=== PATIENT | female | born 1935 | race Caucasian/White ===

== ENCOUNTER 2022-10-09 19:01 | Emergency (ER) | payer OTHER, MEDICARE ==
[~2022-10-09] VITALS: Ht 162.6 cm; Wt 56.7 kg
[~2022-10-09 19:01] MED LIST: ATENOLOL25 MG PO; CENTRUM SILVER1 EACH PO; CITRACAL + D C1 EACH PO; COSAMIN DS TAB1 EACH PO; CRESTOR10 MG PO; IMITREX100 MG PO; NORCO 5-325 TA1 EACH PO; THERA TEARS NU1 EACH PO
[2022-10-09] MEDS ORDERED: ATENOLOL25 MG PO (19:23)
[2022-10-09] MEDS ORDERED: ONDANSETRON ODT4 MG PO (20:45)
== END 2022-10-09 21:16 | disposition home or self-care (01) ==
LOC: ED 19:01
DX: S63.92XA Sprain of unspecified part of left wrist and hand, initial encounter (principal); S00.83XA Contusion of other part of head, initial encounter; E78.5 Hyperlipidemia, unspecified; I10 Essential (primary) hypertension; W00.0XXA Fall on same level due to ice and snow, initial encounter; Z88.5 Allergy status to narcotic agent; Z79.899 Other long term (current) drug therapy
CPT/HCPCS: 70450; 70486; 73130; 99284-25; A9270

== ENCOUNTER 2025-01-20 11:07 | Observation (INO) | payer MEDICARE, OTHER ==
[~2025-01-20] VITALS: Ht 162.6 cm; Wt 57.3 kg
[~2025-01-20 11:07] MED LIST changes: +ONDANSETRON ODT4 MG PO
[2025-01-20] MEDS ORDERED: CODEINE-GUAIFE120 ML PO ×2 (12:34→17:50)
[2025-01-20 13:19] LABS: BASOPHILS 0.5 % (0.1-1.2); EOSINOPHILS 1.3 % (0.7-5.8); HEMATOCRIT 44.2 % (34.1-44.9); LYMPHOCYTES 9.7 % (19.3-51.7); MCH 27.3 PG (25.6-32.2); MCHC 31.7 g/dL (32.2-35.5); MCV 86.2 fL (79.4-94.8); MONOCYTES 10.1 % (4.7-12.5); NEUTROPHILS 78.2 % (34.0-71.1); PLATELET COUNT 249 K/uL (182-369); RBC 5.13 M/uL (3.93-5.22)
[2025-01-20 13:38] LABS: ALBUMIN 3.6 g/dL (3.4-5.0); ALBUMIN/GLOBULIN RATIO 0.95 (1.1-2.4); ANION GAP 10.2 (7-21); BILIRUBIN, TOTAL 0.6 mg/dL (0.2-1.0); BUN/CREATININE RATIO 11.94 (6.0-28.6); CALCIUM 9.4 mg/dL (8.5-10.1); CREATININE, SERUM 0.67 mg/dL (0.55-1.02); POTASSIUM 4.2 mmol/L (3.5-5.1); PROTEIN, TOTAL 7.4 g/dL (6.4-8.2)
[2025-01-20] MEDS ORDERED: ROSUVASTATIN CAL5 MG PO (14:41)
[2025-01-20] MEDS ORDERED: ondansetron HCL 4 MG/2 ML VIAL IV PRN (15:15)
[2025-01-20] MEDS ORDERED: ACETAMINOPHEN 325 MG TAB PO PRN (15:15)
[2025-01-20] MEDS ORDERED: atenoloL 25 MG TAB PO SCH (16:11)
--- NOTE | 2025-01-20 16:28 | NUR ---
PATIENT TO MED SURG.
[2025-01-20 16:37] VITALS: BP 166/95
--- NOTE | 2025-01-20 17:13 | NUR ---
PATIENT ADMITTED TO MED SURG. RIGHT UPPER CHEST TUBE IS SECURED WITH TAPE AND TO WATER SEAL = 20CM OF WALL SUCTION. O2 SATS ARE 96% ON ROOM AIR. LEFT LUNG IS CLEAR, RIGHT LUNG HAS CRACKLES NOTED THROUGHOUT. PATIENT'S DAUGHTER AND FAMILY IN ROOM. PO MEDICATION GIVEN FOR HTN. PATIENT RATES RIGHT SCAPULA PAIN 4/10.
[2025-01-20] MEDS ORDERED: GLUCOSAMINE &1 EACH PO (17:50)
--- NOTE | 2025-01-20 17:51 | NUR ---
MED REC COMPLETE
[2025-01-20 18:17] VITALS: BP 118/96
--- NOTE | 2025-01-20 18:23 | NUR ---
PATIENT SITTING UP IN CHAIR AT THIS TIME. VITALS AND I&O'S DONE AND CHARTED. CALL LIGHT IN REACH. NO FURTHER NEEDS AT THIS TIME. FRESH WATER GIVEN.
--- NOTE | 2025-01-20 18:35 | NUR ---
CALL TO DR. EATON REGARDING PATIENT'S PAIN NEEDS. NEW ORDER TO FOLLOW.
[2025-01-20] MEDS ORDERED: OXYCODONE HCL 5 MG TAB PO PRN ×2 (18:45→20:45)
--- NOTE | 2025-01-20 18:53 | NUR ---
PATIENT IS UP TO CHAIR, DENIES NEEDS. FACE SHEET AND DAUGHTERS PHONE NUMBER ARE PLACED BY DR. CARPIO'S COMPUTER. DAUGHTER IS AN MD AND WOULD LIKE TO BE CONTACTED BY DR. CARPIO TOMORROW.
--- NOTE | 2025-01-20 19:33 | NUR ---
REPORT RECEIVED FROM DAY SHIFT RN. PT SITTING IN RECLINER ALERT AND ORIENTED. FAMILY IN ROOM. PT DENIES NEEDS. WHITE BOARD UPDATED. CALL LIGHT IN REACH.
--- NOTE | 2025-01-20 20:38 | NUR ---
PHONE CALL TO MD, UPDATED pt'S FAMILY REQUESTING LOWER DOSE OF PAIN MEDICATION, SLEEP MEDICATION. MD TO pt ROOM ASSESSING pt, DISCUSSING PLAN OF CARE. MD TO PLACE ORDERS.
[2025-01-20] MEDS ORDERED: TRAMADOL HCL 50 MG TAB PO PRN (20:45)
[2025-01-20] MEDS ORDERED: MELATONIN 3 MG TAB PO PRN ×2 (21:00)
[2025-01-20 21:14] VITALS: BP 140/94
--- NOTE | 2025-01-20 21:25 | NUR ---
CALL LIGHT ANSWERED. VS COMPLETE. YADIEL MILLIGAN ASSISTS WITH ORAL CARE. BLINDS SHUT PER REQUEST. SBA TO BSC FOR VOID, pt REQUESTS PRIVACY. NURSING STAFF OUT OF ROOM. pt USES CALL LIGHT, BUT ALREADY BACK IN BED. CHEST TUBE KNOCKED OVER. SYSTEM INTACT TO SUCTION. pt EDUCATED NOT TO TRANSFER SELF WITHOUT NURSING STAFF ASSIST. VERBALIZES UNDERSTANDING. RESTING IN BED WITH CALL LIGHT AND PERSONAL SUPPLIES WITHIN REACH.
--- NOTE | 2025-01-20 22:10 | NUR ---
EVENING ASSESSMENT COMPLETE. PT REPORTS RIGHT SIDE PAIN 10/21. PRN FOR PAIN ADMIN PER EMAR. PT DENIES SOB. SpO2 MID 90'S ON RA. RIGHT CHEST TUBE IN PLACE WITH SEROUS DRAINAGE. HOB ELEVATED. CPOX IN PLACE. ASSISTED WITH PM CARES. PT DENIES QUESTIONS OR CONCERNS. CALL LIGHT IN REACH. BED ALARM FOR SAFETY.
--- NOTE | 2025-01-20 22:52 | NUR ---
CALL LIGHT ANSWERED. PT UP TO BSC WITH SBA TO VOID. BACK TO BED, MOI WELL. PRN ADMIN FOR SLEEP PER PT REQEUST. NO FURTHER NEEDS. BED ALARM IN PLACE. CALL LIGHT IN REACH.
[2025-01-21] VITALS (7 sets, daily range): BP systolic 116–146; BP diastolic 60–87
--- NOTE | 2025-01-21 00:23 | NUR ---
BED ALARM SOUNDING. PT WITH LEGS OVER THE SIDE OF THE BED. REPORTS BACK PAIN. DENIES PRN FOR PAIN WHEN OFFERED. ASSISTED PT TO REPOSITION TO LEFT SIDE WITH PILLOWS. NO FURTHER NEEDS. CALL LIGHT IN REACH. BED ALARM FOR SAFETY.
--- NOTE | 2025-01-21 02:35 | NUR ---
PT RESTING ON LEFT SIDE WITH EYES CLOSED. AWAKENS EASILY. VS AND I&O OBTAINED, WNL. SpO2 96% ON RA. ASSESSMENT COMPLETE. NO NEEDS AT THIS TIME. CALL LIGHT IN REACH. BED ALARM FOR SAFETY.
--- NOTE | 2025-01-21 04:01 | NUR ---
PT RESTING IN BED WITH EYES CLOSED. RESPIRATIONS EVEN. SpO2 94% ON RA. HR 70'S. BED ALARM IN PLACE. CALL LIGHT IN REACH.
[2025-01-21 05:33] LABS: BASOPHILS 0.3 % (0.1-1.2); EOSINOPHILS 2.8 % (0.7-5.8); HEMATOCRIT 41.1 % (34.1-44.9); HEMOGLOBIN 13.3 g/dL (11.2-15.7); MCH 27.4 PG (25.6-32.2); MCHC 32.4 g/dL (32.2-35.5); MCV 84.7 fL (79.4-94.8); MONOCYTES 9.2 % (4.7-12.5); NEUTROPHILS 78.4 % (34.0-71.1); PLATELET COUNT 249 K/uL (182-369); RBC 4.85 M/uL (3.93-5.22)
[2025-01-21 05:51] LABS: ALBUMIN/GLOBULIN RATIO 0.94 (1.1-2.4); ANION GAP 11.2 (7-21); BILIRUBIN, TOTAL 0.7 mg/dL (0.2-1.0); BUN/CREATININE RATIO 15.78 (6.0-28.6); CALCIUM 9.5 mg/dL (8.5-10.1); CREATININE, SERUM 0.57 mg/dL (0.55-1.02); PHOSPHORUS, INORGANIC 3.5 mg/dL (2.5-4.9); POTASSIUM 4.2 mmol/L (3.5-5.1); PROTEIN, TOTAL 6.2 g/dL (6.4-8.2)
--- NOTE | 2025-01-21 06:26 | NUR ---
PT UP TO BSC WITH SBA TO VOID. PT ABLE TO DO OWN KIRSTEN CARE. GAIT STEADY. BACK TO BED, MOI WELL. PT REPORTS HEADACHE PAIN 3/10. PRN FOR PAIN ADMIN. DAUGHTER AT BEDSIDE. NO FURTHER NEEDS. CALL LIGHT IN REACH.
--- NOTE | 2025-01-21 07:16 | NUR ---
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
--- NOTE | 2025-01-21 08:17 | NUR ---
Patient sitting up eating breakfast, tolerting well. Patient denies shortness of breath, chest pain or any other distress. Patient tolerating breakfast well, she reports a good appetite, no nausea. Pigtail Chest tube to right chest noted, intact/patent to wall suction (-20mmhg), minimal drainage noted in collection device, no bubbling noted as well. SP02 95% at this time per cont cpox. Patient's daughter at bedside visiting with patient. Pt encouraged to call if she needs assistance, call light within reach.
--- NOTE | 2025-01-21 11:38 | NUR ---
Patient reports she is a bit nauseated. Admin zofran 4mg iv at this time. Call light remains within reach.
[2025-01-21] MEDS ORDERED: PHARMACY RENAL DOSE ADJUSTMENT 1 DOSE MISC PO SCH (12:00)
[2025-01-21] MEDS ORDERED: atenoloL 25 MG TAB PO SCH (21:00)
--- NOTE | 2025-01-22 13:13 | CONS ---
[facility] [address], [place] [address] Signed DATE OF CONSULTATION: 01/21/2025 REQUESTING PHYSICIAN: Dr. Beltran. ISSUE: Recent right radiology directed thoracentesis with pneumothorax and placement of pigtail catheter for pneumothorax, assumption of chest tube management. HISTORY OF PRESENT ILLNESS: This 89-year-old white woman is known to me from the distant past, but not as a patient. She was admitted by Dr. Beltran yesterday following an emergency room directed referral from the Radiology Department at [place]. 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 Tariq. She has undergone immunotherapy, which was ineffective and consideration is now made for chemotherapy. She is noted to have a right large perihilar mass and apparent possible distant metastatic disease, but not the brain. I am not certain that her histology is known. I do not have that information available. In any case, she has been having rather persistent cough for the past several weeks and right-sided x-ray showed a pleural effusion. She was referred to the Radiology Department yesterday for thoracentesis in hopes this would improve her cough. An image directed thoracentesis was performed resulted in an immediate pneumothorax. The radiologist was able to put a pigtail decompressive catheter in the right pleural space. The patient was subsequently admitted by Dr. Beltran, the hospitalist and consultation undertaken with Dr. Lobato, the locum surgeon. There is no evidence of ongoing air leak or anything of that sort. I assumed call responsibilities and was asked to follow through with further management of the tube. A chest x-ray was performed this morning, which showed a "tiny apical pneumothorax" and persistent masslike density near the right hilum with basilar atelectasis and consolidation in the right lung with blunting of the costophrenic angle. My review of the chest x-ray this morning shows a well expanded lung and I am not certain that the apical pneumothorax is entirely evident on my exam. There is right lower lobe consolidation, but no evidence of significant effusion currently. The patient is accompanied right now by her , Seb and her daughter, who happens to be an interventional radiologist, who is visiting from [place] currently. Electronically Signed By: BRUCE CARPIO MD 01/22/25 1313 PATIENT NAME: RUSSELL LEDESMA CONSULTATION DATE OF : 39 REPORT #: [id number] PHYSICIAN: BRUCE CARPIO MD PCP: DEBBIE KRAMER REPORT IS CONFIDENTIAL AND NOT TO BE RELEASED WITHOUT AUTHORIZATION [facility] [address], [place] [address] Signed REVIEW OF SYSTEMS: She denies any shortness of breath or chest pain. She is having no symptoms really whatsoever at this time. PHYSICAL EXAMINATION: GENERAL: Pleasant white woman who looks younger than her stated age of 89 years. NECK: Trachea is midline. There is no jugular venous distention. She has no hoarseness. CHEST: Chest exam is undertaken, showing a white pigtail catheter emanating from the right chest wall. I see no fluctuation in the Pleur-evac device that is present. There is no air leak including with provocative maneuvers of coughing, etc. The chest tube was removed in the standard way after releasing the coil mechanism on the device and the wound covered with a Xeroform gauze. ASSESSMENT: A small pneumothorax occurred in relation to right-sided thoracentesis. I do not see the x-ray that antedated the pigtail catheter placement, but I certainly have reviewed the chest x-ray from today, which shows good expansion of the lung consolidation in the right lower lobe to a degree, but no evidence of extensive effusion. I would doubt that the tube was functional at this point, it may have clotted off with proteinaceous fluid or simply there was no air leak, but it appears not to be functioning in any case and removal of the tube will be followed by a chest x-ray in 4 hours or so to assess stability of the right pleural space. If an increased pneumothorax is noted, she may require another chest tube (generally a mini chest tube in my practice 10-Malaysian or so). If there is no evidence of progressive pneumothorax in any way, she likely can be discharged later. I discussed this with the patient and her family as well as Dr. Beltran, the hospitalist. I did mention the consideration for pleurodesis briefly; if she does have significant pleural effusion, it may be an opportunity for her so as to avoid need for recurrent thoracentesis. Right now, it appears not to be much of an issue in fact. MD APRIL Ward/ALLYSON /[id number] Electronically Signed By: BRUCE CARPIO MD 01/22/25 1313 PATIENT NAME: RUSSELL LEDESMA CONSULTATION DATE OF : 39 REPORT #: [id number] PHYSICIAN: BRUCE CARPIO MD PCP: DEBBIE KRAMER REPORT IS CONFIDENTIAL AND NOT TO BE RELEASED WITHOUT AUTHORIZATION [facility] [address] [place], [place] [address] Signed cc: MD Debbie Bliss PA Copies: DEBBIE KRAMER ~ Electronically Signed By: BRUCE CARPIO MD 01/22/25 1313 PATIENT NAME: RUSSELL LEDESMA CONSULTATION DATE OF : 39 REPORT #: [id number] PHYSICIAN: BRUCE CARPIO MD PCP: DEBBIE KRAMER REPORT IS CONFIDENTIAL AND NOT TO BE RELEASED WITHOUT AUTHORIZATION
== END 2025-01-21 14:45 | disposition home or self-care (01) ==
LOC: ED 11:07 → MS 11:09
PROVIDERS: Emergency Medicine; ADMIT Family Medicine; ATTEND Family Medicine
DX: J95.811 Postprocedural pneumothorax (principal); I10 Essential (primary) hypertension; E78.00 Pure hypercholesterolemia, unspecified; Z79.899 Other long term (current) drug therapy; Y83.8 Other surgical procedures as the cause of abnormal reaction of the patient, or of later complication, without mention of misadventure at the time of the procedure; Z85.118 Personal history of other malignant neoplasm of bronchus and lung
CPT/HCPCS: 10160; 36415; 71045; 77012; 80053; 83735; 84100; 85025; 88112; 88305; 88341; 88342; 88344; 88360; 94762; 94799; 96374; 99284; A9270; G0378; J2405